=== PATIENT | female | born 1995 | race Caucasian/White ===

== ENCOUNTER 2018-03-10 11:15 | Emergency (ER) | payer OTHER ==
[~2018-03-10] VITALS: Ht 162.6 cm; Wt 71.7 kg
[2018-03-10 11:19] VITALS: Ht 162.6 cm; Wt 71.7 kg
[2018-03-10 12:32] VITALS: BP 125/83
== END 2018-03-10 12:33 | disposition home or self-care (01) ==
LOC: ED 11:15
DX: H66.93 Otitis media, unspecified, bilateral (principal); H93.13 Tinnitus, bilateral

== ENCOUNTER 2018-03-19 17:51 | Emergency (ER) | payer OTHER ==
[~2018-03-19] VITALS: Ht 162.6 cm; Wt 73.0 kg
[2018-03-19 18:04] VITALS: Ht 162.6 cm; Wt 73.0 kg
[2018-03-19 23:22] VITALS: BP 146/107
== END 2018-03-19 23:22 | disposition home or self-care (01) ==
LOC: ED 17:51
DX: S01.511A Laceration without foreign body of lip, initial encounter (principal); S13.9XXA Sprain of joints and ligaments of unspecified parts of neck, initial encounter; V49.88XA Car occupant (driver) (passenger) injured in other specified transport accidents, initial encounter; Y93.I9 Activity, other involving external motion; Y92.413 State road as the place of occurrence of the external cause; Y99.8 Other external cause status
CPT/HCPCS: J1885; J2001